=== PATIENT | female | born 1990 | race Caucasian/White ===

== ENCOUNTER 2019-11-22 06:35 | Inpatient (IN) | payer SELFPAY ==
[2019-11-22 06:37] VITALS: BP 167/101; PULSE 90; RESP 20; O2SAT 100; BMI 26.6
[2019-11-22 07:08] LABS: Basophils % 0.2 %; Eosinophils % 0.1 %; Hematocrit 40.9 % (37.0-47.0); Lymphocytes # 1.2 10^3/uL (0.8-4.8); Mean Corpuscular HGB Conc 31.8 g/dL (30.0-36.0); Mean Corpuscular Hemoglobin 27.1 pg (28.0-34.0); Mean Corpuscular Volume 85.2 fL (81-99); Mean Platelet Volume 10.7 fL (7.4-10.4); Monocytes # 0.4 10^3/uL (0.2-0.9); Neutrophils # 7.75 10^3/uL (1.8-7.7); Neutrophils % 82.3 %; Nucleated Red Blood Cells % 0 %; Platelet Count 290 10^3/cmm (130-400); Red Cell Distribution Width 12.4 % (12.1-15.1); White Blood Count 9.4 10^3/uL (4.0-10.0)
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
[2019-11-22 07:28] LABS: Alanine Aminotransferase 11 U/L (0-33); Alkaline Phosphatase 146 IU/L (35-105); Aspartate Amino Transferase 20 U/L (0-32); Blood Urea Nitrogen 11 mg/dL (6-20); Calcium 8.2 mg/dL (8.5-10.5); Carbon Dioxide 19 mmol/L (22-29); Chloride 106 mmol/L (98-107); Creatinine Clr Calc Pharmacy 120.5008; Globulin 3.8 g/dL (1.3-4.6); Glomerular Filtration Rate 100.4 mL/min (90-130); Glucose 94 mg/dL (65-115); Osmolality Calculated 288 mOsm/kg (285-295); Sodium 141 mmol/L (136-145); Total Bilirubin 0.3 mg/dL (0.15-1.2); Total Protein 7.8 g/dL (6.6-8.7)
[2019-11-22 07:30] LABS: Acetaminophen < 5.0 ug/mL (10-30); Alcohol Level < 10 mg/dL (0-10); Salicylate < 0.3 mg/dL (3-10)
[2019-11-22 08:29] LABS: Add Urine Microscopic? YES; Amphetamines Screen Urine Positive (Negative); Barbiturates Screen Urine Negative (Negative); Benzodiazepines Screen Urine Positive (Negative); Bilirubin Urine Neg (NEGATIVE); Blood Urine 3+ (Negative); Cocaine Screen Urine Positive (Negative); Glucose Urine UA Norm (Normal); Ketones Urine 2+ (Negative); Leukocyte Esterase Urine 2+ (Negative); Nitrate Urine Negative (Negative); PCP Screen Urine Negative (Negative); Protein Urine 1+ (Negative); Specific Gravity, Urine 1.005 (1.005-1.030); THC Screen Urine Negative (Negative); Urine Appearance SL Hazy (CLEAR); Urine Color Straw (Yellow); Urobilinogen Urine Norm (Negative)
[2019-11-22 08:30] LABS: Add Urine Culture? Yes; Bacteria Urine 1+; Mucus Urine 1+; Opiate Screen Urine Positive (Negative); Squamous Epithelial Cell Urine 0-4 (0-5)
[2019-11-22 08:40] VITALS: BP 162/96; PULSE 84; RESP 18; TEMP 36.7; O2SAT 96
[2019-11-22] MEDS: LORazepam 2 mg/mL INJ 1 mL ×2 (09:46→09:47)
--- NOTE | 2019-11-22 09:48 | PC.NURSE ---
1 mg given and 1mg wasted
[2019-11-22] MEDS: LORazepam 2 mg/mL INJ 1 mL IM (10:47)
[2019-11-22] MEDS: ziprasidone 20 mg/mL SDV 10 MG IM (10:49)
[2019-11-22 11:13] VITALS: BP 134/98; PULSE 101; RESP 20; TEMP 37.1; O2SAT 99
[2019-11-22 11:50] VITALS: BP 124/84; PULSE 100; RESP 20; TEMP 36.7; O2SAT 97
[2019-11-22 14:00] VITALS: BP 124/84; PULSE 100; RESP 20; TEMP 36.7; O2SAT 97
[2019-11-22] MEDS: OLANZapine 5 mg ODT PO (19:57)
[2019-11-22] MEDS: hyDROXYzine 25 mg Capsule 50 MG PO (19:57)
[2019-11-22 20:44] VITALS: BP 116/78; PULSE 112; RESP 19; TEMP 36.7; O2SAT 99
[2019-11-23 06:00] VITALS: BP 134/82; PULSE 67; RESP 18; TEMP 36.9; O2SAT 98
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
[2019-11-23] MEDS: OLANZapine 5 mg ODT PO ×2 (12:30→21:02)
[2019-11-23] MEDS: acetaminophen 325 mg Tablet 650 MG PO (12:34)
--- NOTE | 2019-11-23 12:35 | PC.NURSE ---
Given :PRN Zyprexa Zydis MG PO PRN Tylenol MG PO for arm pain at a 7 out of 0-10 pain scale Patient reports pain in her arms and will continue to monitor progress.
[2019-11-23 14:00] VITALS: BP 117/80; PULSE 97; RESP 20; TEMP 36.8; O2SAT 96
[2019-11-23] MEDS: ARIPiprazole 10 mg Tablet PO ×2 (17:22→17:45)
[2019-11-23 20:54] VITALS: BP 119/72; PULSE 76; RESP 20; TEMP 37.1; O2SAT 98
[2019-11-23] MEDS: hyDROXYzine 25 mg Capsule 50 MG PO (21:02)
[2019-11-23] MEDS: quetiapine 100 mg Tablet PO (21:02)
[2019-11-24 06:00] VITALS: BP 124/84; PULSE 85; RESP 18; TEMP 36.9; O2SAT 98
[2019-11-24] MEDS: ARIPiprazole 10 mg Tablet PO (08:07)
[2019-11-24 14:00] VITALS: BP 130/84; PULSE 67; RESP 18; TEMP 37.1; O2SAT 98
--- NOTE | 2019-11-24 15:51 | P.PN_ITS ---
Subjective NPU Subjective: Interval history: Joanne presented to the interview a little more with it but not much. She continues to be confused and psychomotor retarded. She has been trying to get ahold of family and is wanting to know if she could be discharged. We discussed the fact that we will discharge her but not likely until we have some clearing of her psychosis, which she did not fight us about. We discussed the fact that CPS was interested in having a conversation with her, which she was open to doing. Additionally, she was reporting that she was having some anxiety. We agreed that we would look into some treatment, but directed her to the prn medications that are available for her. We also advised her that Propranolol had been initiated, as we had discussed later in the day yesterday, and that she had that available to her three times a day, which is a non-addictive medication for her anxiety; she understood and agreed to proceed as is documented in this note, after a discussion of the risks, benefits, and alternatives. She is sleeping much better and eating okay. Mental Status Exam MSE Comments: This is a well-nourished, well-developed, female, with adequate dress, slightly disheveled, and limited eye contact. No abnormal movements except for psychomotor retardation. Mostly cooperative with exam in mild distress. Speech was normal rate and volume. Mood described as anxious; affect slightly irritable. Thought process, disorganized but intermittently linear/organized. Thought content: patient denied any suicidal or homicidal ideation. She endorsed paranoia and there were clear paranoid delusions noted. She endorsed having some auditory and visual hallucinations. Attention and concentration were limited, and memory was unreliable, but none were formally tested. She is alert and oriented to person and place. Insight and judgment are impaired. Impulse control is impaired. Vitals/I&O/Wt Last Vital Signs Temp 98.4 F 11/24/19 06:00 Pulse 85 11/24/19 06:00 Resp 18 11/24/19 06:00 BP 124/84 11/24/19 06:00 Pulse Ox 98 11/24/19 06:00 Data NPU : 11/22/19 07:00 11/22/19 07:00 A&P Additional A&P Information (1) Acute psychosis: (2) Drug overdose: (3) Substance abuse: This is a 28 year old, female, eleven days or so post- with clear psychosis, active addiction, and issues with child protective services, who presents not on medication, wanting to restart medications. Continue current medication. Except added Klonopin 0.5 mg by mouth twice a day when necessary. Along with the propranolol 20 mg by mouth 3 times a day when necessary. Encourage individual, group, and milieu therapy. Continue q-15 minute checks for safety. Recommend sober living treatment at the highest level of care, to which the patient is willing to commit. Involuntary Hold Information 96 Hour Hold: 96 Hour Involuntary Admission: Yes 96 Hour Hold Ending Date: 11/28/19 96 Hour Hold Ending Time: 09:45 Attestations NPU Medical Necessity Statement*: Inpatient hospitalization is medically necessary and the clinically appropriate intervention, at this time. We will monitor medications and make changes as indicated. Likely length of stay is 3-5 days. Coding Level of Care Code Acute Wire Spiral Binder for Umair Hayes
[2019-11-24] MEDS: OLANZapine 5 mg ODT PO (16:49)
--- NOTE | 2019-11-24 16:49 | PC.NURSE ---
PRN ZYPREXA ZYDIS ZYPREXA ZYDIS 5MG PO PER PATIENT C/O AGITATION/ANXIETY. WILL CONTINUE TO MONITOR FOR MEDICATION EFFECTIVENESS.
[2019-11-24] MEDS: CLONazepam 0.5 mg Tablet PO (17:48)
--- NOTE | 2019-11-24 17:50 | PC.NURSE ---
PRN ZYPREXA ZYDIS FOLLOW UP MEDICATION EFFECTIVE. NO FURTHER C/O ANXIETY.
--- NOTE | 2019-11-24 18:20 | PC.NURSE ---
Childrens Division At 1845 the patient was served papers for custody of her child by a children's division senior investigator. Security was present. Dr Saab was aware. Patient tolerated well.
[2019-11-24] MEDS: quetiapine 100 mg Tablet PO (21:37)
[2019-11-24 22:00] VITALS: BP 120/80; PULSE 56; RESP 18; TEMP 36.5; O2SAT 98
[2019-11-25 06:00] VITALS: BP 129/85; PULSE 55; RESP 16; TEMP 36.6; O2SAT 98
[2019-11-25] MEDS: ARIPiprazole 10 mg Tablet PO (09:53)
[2019-11-25] MEDS: CLONazepam 0.5 mg Tablet PO (09:55)
[2019-11-25 13:42] VITALS: BP 147/87; PULSE 65; RESP 18; TEMP 36.7; O2SAT 97
[2019-11-25] MEDS: hyDROXYzine 25 mg Capsule 50 MG PO (14:17)
--- NOTE | 2019-11-25 14:34 | P.PN_ITS ---
Subjective NPU Subjective: Interval history: Joanne presented today struggling a little bit because she was visited by Child Protective Services, and they advised her that they had taken custody of the baby that she just delivered. The baby is in foster care now; she had been staying with Joanne?s mother, however, they made the decision and moved upon that. She now has a change in her focus, as she has a hearing next week, and her goal now is just to be well and be able to represent herself well at the hearing. We discussed that as a reasonable plan. She had requested that we check her records, and we did get some records back from [facility], saying that they had not treated her or given her any medication for at least a year. We do see where Klonopin has been used, in the past, for anxi ety; this process description writer expressed that given her current presentation, a discharge on a controlled substance is just not a good plan. However, as a prn occasionally, we agreed that we could have Klonopin be in place, as the Lorazepam, as it seems to work better for her. We reviewed the possibility of increasing her Abilify, in the morning, as she is adjusting to it and having some improvement in her psyc hosis. She does report that her thoughts are kind of racing, at this point, and we agreed that given the initiation of Abilify, increasing that medication to try to meet that concern would be the most appropriate intervention. We discussed the risks, benefits, and alternatives of doing that, and she understood and agreed to proceed as is documented in this note. She reports that she is eating okay and sleeping a little better. Mental Status Exam MSE Comments: This is a well-nourished, well-developed, female, with adequate dress, grooming, and improving eye contact. No abnormal movements except for psychomotor retardation. Mostly cooperative with exam in mild distress. Speech was normal rate and volume. Mood described as anxious; affect less irritable. Thought process, less disorganized. Thought content: patient denied any suicidal or homicidal ideation. She endorsed paranoia and there were clear paranoid delusions noted. She endorsed having some auditory and visual hallucinations and racing thoughts. Attention and concentration were improving, and memory was unreliable, but none were formally tested. She is alert and oriented to person and place. Insight and judgment are impaired, but improving. Impulse control is impaired. Vitals/I&O/Wt Last Vital Signs Temp 97.8 F 11/25/19 06:00 Pulse 55 L 11/25/19 06:00 Resp 16 11/25/19 06:00 BP 129/85 11/25/19 06:00 Pulse Ox 98 11/25/19 06:00 Data NPU : 11/22/19 07:00 11/22/19 07:00 A&P Additional A&P Information (1) Acute psychosis: (2) Drug overdose: (3) Substance abuse: This is a 28 year old, female, eleven days or so post- with clear psychosis, active addiction, and issues with child protective services, who presents not on medication, wanting to restart medications. Continue current medication. Encourage individual, group, and milieu therapy. Continue q-15 minute checks for safety. Recommend sober living treatment at the highest level of care, to which the patient is willing to commit. Involuntary Hold Information 96 Hour Hold: 96 Hour Involuntary Admission: Yes 96 Hour Hold Ending Date: 11/28/19 96 Hour Hold Ending Time: 09:45 Attestations NPU Medical Necessity Statement*: Inpatient hospitalization is medically necessary and the clinically appropriate intervention, at this time. We will monitor medications and make changes as indicated. Likely length of stay is 2-4 days. Coding Level of Care Code Acute Technologist Development for Umair Hayes
[2019-11-25] MEDS: OLANZapine 5 mg ODT PO (16:52)
[2019-11-25] MEDS: acetaminophen 325 mg Tablet 650 MG PO (16:54)
[2019-11-25] MEDS: propranolol 20 mg Tablet PO (21:24)
[2019-11-25] MEDS: quetiapine 100 mg Tablet PO (21:24)
--- NOTE | 2019-11-25 21:26 | PC.NURSE ---
PRN INDERAL PT REQUESTING ANXIETY MEDICATION. ADMINISTERED INDERAL 20MG PO. WILL MONITOR FOR MEDICATION EFFECTIVENESS.
[2019-11-25 22:00] VITALS: BP 131/89; PULSE 50; RESP 17; TEMP 36.5; O2SAT 99
[2019-11-26 06:00] VITALS: BP 136/90; PULSE 58; RESP 15; TEMP 36.5; O2SAT 97
[2019-11-26] MEDS: ARIPiprazole 10 mg Tablet PO (09:02)
[2019-11-26] MEDS: CLONazepam 0.5 mg Tablet PO ×2 (09:04→20:37)
--- NOTE | 2019-11-26 09:04 | PC.NURSE ---
PRN KLONOPIN KLONOPIN 0.5MG PO PER PATIENT C/O ANXIETY. WILL CONTINUE TO MONITOR FOR MEDICATION EFFECTIVENESS.
--- NOTE | 2019-11-26 10:00 | PC.NURSE ---
PRN KLONOPIN FOLLOW UP MEDICATION EFFECTIVE. NO FURTHER C/O ANXIETY.
[2019-11-26] MEDS: nicotine 2 mg Gum BUCCAL (10:31)
[2019-11-26] MEDS: OLANZapine 5 mg ODT PO (13:48)
--- NOTE | 2019-11-26 13:49 | PC.NURSE ---
PRN ZYPREXA ZYDIS ZYPREXA ZYDIS 5MG PO PER PATIENT C/O AGITATION/ANXIETY. WILL CONTINUE TO MONITOR FOR MEDICATION EFFECTIVENESS.
--- NOTE | 2019-11-26 13:52 | PM.NPN ---
Subjective NPU Subjective: Interval history: Joanne presents today somewhat irritable and focused on discharge. She is identifying that she has a hearing on Wednesday and wanting to make sure that she can get there. It is at 9:45 in the morning. She endorsed that she would like to attend in person though it appears that she could attend virtually. We discussed the likelihood that she would be discharged, but we would have to make sure that she has improved enough and would be appropriate for discharge. It is in [place], [place] reportedly. She is very focused on medication as a solution for all that ails her. During the day she requested a medication for ADHD, a medication for anxiety, a medication for what she describes as a pinched nerve from the recent childbirth, and an increase in her Klonopin for anxiety. We had a long discussion about the fact that once she is discharged there are not going to be a lot of providers that are interested in having her on medications that are all either controlled substances or have street value. She reported a plan to go back to [facility] and reporting that they had her on Suboxone, Adderall, Klonopin, and Neurontin. We discussed that given her addiction history, that is not a great idea even though she endorses that she did not take anything other than how it was prescribed. I explained to her that we would not be increasing the Klonopin, that I am not even that excited about the idea of discharging her on it. We discussed the risks, benefits, and alternatives of Strattera. Unfortunately, it is not on formulary so we agreed to Wellbutrin to see if it might help with her ADHD symptoms. She understood and agreed to proceed as is documented in this note. Mental Status Exam MSE Comments: This is a well-nourished, well-developed, female, with adequate dress, grooming, and improving eye contact. No abnormal movements except for psychomotor retardation. Mostly cooperative with exam in mild distress. Speech was normal rate and volume. Mood described as anxious; affect less irritable. Thought process, more organized. Thought content: patient denied any suicidal or homicidal ideation. She endorsed less paranoia and there were paranoid and some bizarre delusions noted, but lessening. She denied auditory or visual hallucinations. Attention and concentration were improving, and memory was more reliable, but none were formally tested. She is alert and oriented x 3. Insight and judgment are improving. Impulse control is impaired, but improving. Vitals/I&O/Wt Last Vital Signs Temp 97.7 F 11/26/19 06:00 Pulse 58 L 11/26/19 06:00 Resp 15 11/26/19 06:00 BP 136/90 11/26/19 06:00 Pulse Ox 97 11/26/19 06:00 Weight last 48 hrs Weight 63.163 kg Data NPU : 11/22/19 07:00 11/22/19 07:00 A&P Assessment and plan (1) History of ADHD: Status: Acute (2) Schizophrenia: Status: Acute Additional A&P Information (3) Acute psychosis: (4) Drug overdose: (5) Substance abuse: This is a 28 year old, female, eleven days or so post- with clear psychosis, active addiction, and issues with child protective services, who presents not on medication, wanting to restart medications. Continue current medication. Encourage individual, group, and milieu therapy. Continue q-15 minute checks for safety. Recommend sober living treatment at the highest level of care, to which the patient is willing to commit. Involuntary Hold Information 96 Hour Hold: 96 Hour Involuntary Admission: Yes 96 Hour Hold Ending Date: 11/28/19 96 Hour Hold Ending Time: 09:45 Attestations NPU Medical Necessity Statement*: Inpatient hospitalization is medically necessary and the clinically appropriate intervention, at this time. We will monitor medications and make changes as indicated. Likely length of stay is 1-3 days. Coding Level of Care Code Acute Multi Operation Forming Machine Setter for Umair Hayes Diagnoses History of ADHD Z86.59 Schizophrenia F20.9
[2019-11-26 14:00] VITALS: BP 146/91; PULSE 59; RESP 18; TEMP 36.6; O2SAT 98
--- NOTE | 2019-11-26 14:35 | PC.NURSE ---
PRN ZYPREXA ZYDIS FOLLOW UP MEDICATION EFFECTIVE. NO FURTHER C/O ANXIETY.
[2019-11-26] MEDS: blistex lip oint 7 gm Tube 1 APPLIC TOPICAL (15:42)
[2019-11-26] MEDS: buPROPion SR (12 HR) 150 mg Tablet PO (16:23)
[2019-11-26 20:14] VITALS: BP 134/84; PULSE 64; RESP 16; TEMP 36.7; O2SAT 93
[2019-11-26] MEDS: quetiapine 100 mg Tablet PO (20:37)
--- NOTE | 2019-11-26 20:37 | PC.NURSE ---
pt given scheduled seroquel and PRN klonopin per pt request.
[2019-11-27 06:00] VITALS: BP 136/90; PULSE 53; RESP 13; TEMP 36.8; O2SAT 98
[2019-11-27] MEDS: ARIPiprazole 30 mg Tablet 15 MG PO (08:55)
[2019-11-27] MEDS: buPROPion XL (24 HR) 150 mg Tablet PO (08:55)
[2019-11-27] MEDS: CLONazepam 0.5 mg Tablet PO ×2 (08:58→20:20)
--- NOTE | 2019-11-27 08:58 | PC.NURSE ---
PRN KLONOPIN KLONOPIN 0.5MG PO PER PATIENT C/O ANXIETY. WILL CONTINUE TO MONITOR FOR MEDICATION EFFECTIVENESS.
--- NOTE | 2019-11-27 10:00 | PC.NURSE ---
PRN BOSTONONOPIN FOLLOW UP MEDICATION EFFECTIVE. NO FURTHER C/O ANXIETY. PATIENT SITTING IN THE DAYROOM.
--- NOTE | 2019-11-27 13:01 | PC.NURSE ---
PRN ZYPREXA ZYDIS ZYPREXA ZYDIS 5MG PO PER PATIENT C/O ANXIETY/AGITATION. WILL CONTINUE TO MONITOR FOR MEDICATION EFFECTIVENESS.
[2019-11-27] MEDS: OLANZapine 5 mg ODT PO (13:03)
[2019-11-27 14:00] VITALS: BP 147/95; PULSE 49; RESP 18; TEMP 37.1; O2SAT 96
--- NOTE | 2019-11-27 14:00 | PC.NURSE ---
PRN ZYPREXA ZYDIS FOLLOW UP MEDICATION NOT EFFECTIVE. PATIENT CAME UP TO THE NURSES STATION ASKING FOR SOMETHING FOR ANXIETY. PATIENT STATED THAT SHE JUST GOT NEWS THAT HER DAD ONLY HAD 3 MONTHS TO LIVE. SEE NEXT NOTE.
[2019-11-27] MEDS: propranolol 20 mg Tablet PO (14:17)
--- NOTE | 2019-11-27 14:17 | PC.NURSE ---
Addendum entered by Cassy Grimaldo LPN 11/27/19 15:05: MEDICATION EFFECTIVE. NO FURTHER C/O ANXIETY. Original Note: PRN INDERAL INDERAL 20MG PO PER PATIENT C/O ANXIETY. WILL CONTINUE TO MONITOR FOR MEDICATION EFFECTIVENESS.
--- NOTE | 2019-11-27 16:28 | PM.NPN ---
Subjective NPU Subjective: Interval history: Joanne presented today reporting that she is looking forward to discharge tomorrow. We discussed the process by which she can get discharged in the morning and still make her hearing. We decided to do this mostly because there are still concerns about her level of functioning but not to the level that we would continue the hold which ends at 945 tomorrow. We discussed this at length she was open to this plan of her mother coming tomorrow morning and if she is on time they can leave and have the virtual court session at their place. If not they can work with the social media content manager here to find a spot where the phone call can take place. She continues to be focused on restarting the medications she had been on before but we continue to identify our reluctance to prescribe those medications given her addiction being active. Mental Status Exam MSE Comments: This is a well-nourished, well-developed, female, with adequate dress, grooming, and improving eye contact. No abnormal movements except for mild but resolving psychomotor retardation. Mostly cooperative with exam in less distress. Speech was normal rate and volume. Mood described as better; affect less irritable. Thought process, more organized. Thought content: patient denied any suicidal or homicidal ideation. She endorsed less paranoia , and her paranoid delusions noted are decreasing. She denied auditory or visual hallucinations. Attention and concentration were improving, and memory was more reliable, but none were formally tested. She is alert and oriented x 3. Insight and judgment are improving. Impulse control is impaired, but improving. Vitals/I&O/Wt Last Vital Signs Temp 98.7 F 11/27/19 14:00 Pulse 49 L 11/27/19 14:00 Resp 18 11/27/19 14:00 BP 147/95 11/27/19 14:00 Pulse Ox 96 11/27/19 14:00 Weight last 48 hrs Weight 63.163 kg Data NPU : 11/22/19 07:00 11/22/19 07:00 A&P Assessment and plan (1) History of ADHD: Status: Acute (2) Schizophrenia: Status: Acute Additional A&P Information This is a 28 year old, female, 2 weeks or so post- with resolving psychosis, active addiction, and issues with child protective services, who presents adjusting to the medications. Continue current medication. Encourage individual, group, and milieu therapy. Continue q-15 minute checks for safety. Recommend sober living treatment at the highest level of care, to which the patient is willing to commit. Involuntary Hold Information 96 Hour Hold: 96 Hour Involuntary Admission: Yes 96 Hour Hold Ending Date: 11/28/19 96 Hour Hold Ending Time: 09:45 Attestations NPU Medical Necessity Statement*: Inpatient hospitalization is medically necessary and the clinically appropriate intervention, at this time. We will monitor medications and make changes as indicated. Likely length of stay is 1-2 days. Coding Level of Care Code Acute Beverage Server for Umair Hayes Diagnoses History of ADHD Z86.59 Schizophrenia F20.9
[2019-11-27] MEDS: nicotine 2 mg Gum BUCCAL (17:14)
[2019-11-27] MEDS: quetiapine 100 mg Tablet PO (20:20)
--- NOTE | 2019-11-27 20:37 | PC.NURSE ---
pt given scheduled seroquel and prn klonopin per pt request.
[2019-11-27 20:56] VITALS: BP 136/76; PULSE 58; RESP 20; TEMP 36.7; O2SAT 95
[2019-11-28 06:00] VITALS: BP 119/79; PULSE 57; RESP 16; TEMP 36.6; O2SAT 99
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
[2019-11-28] MEDS: ARIPiprazole 30 mg Tablet 15 MG PO (08:22)
[2019-11-28] MEDS: buPROPion XL (24 HR) 150 mg Tablet PO (08:22)
[2019-11-28] MEDS: hyDROXYzine 25 mg Capsule 50 MG PO (08:30)
--- NOTE | 2019-11-28 08:30 | PC.NURSE ---
PRN VISTARIL 50 MG GIVEN PO PER PT C/O STATED ANXIETY. NO OUTWARD S/S OF ANXIETY NOTED. MOOD IS PLEASANT
[2019-11-28 08:32] VITALS: BP 119/79; PULSE 57; RESP 16; TEMP 36.6; O2SAT 99
== END 2019-11-28 09:53 | disposition home or self-care (01) | DRG 885 ==
LOC: ER 07:44 → NP 10:16
PROVIDERS: Family Medicine; Admitting Provider Psychiatry & Neurology Psychiatry; Visit Provider Psychiatry & Neurology Psychiatry
DX: F23 Brief psychotic disorder (principal); F17.210 Nicotine dependence, cigarettes, uncomplicated; Z86.59 Personal history of other mental and behavioral disorders; F20.9 Schizophrenia, unspecified
CPT/HCPCS: 12345; 36415; 80053; 80306; 80307; 81001; 85025; 87086; 99282; J2060; J3486

== ENCOUNTER 2020-02-19 11:25 | Emergency (ER) | payer MEDICAID, SELFPAY ==
[2020-02-19 11:28] VITALS: RESP 15
--- NOTE | 2020-02-19 11:32 | ED_ITS ---
HPI - Overdose General: Stated Complaint: HEROIN OVERDOSE Time Seen by Provider: 02/19/20 11:29 History of Present Illness: HPI Narrative: 29-year-old female presents emergency room via EMS. She was found unresponsive by her mother who she lives with. She admits to having done heroin this morning she thinks she may have just injected to monitor injected too fast she denies trying to harm herself denies any other injury or illness she does not wish to stay and asked to be allowed to leave. Review of Systems Const: Denies: fever(s), chills, body aches, change in appetite, fatigue or malaise Card: Denies: chest pain, edema, dyspnea on exertion or orthopnea Resp: Denies: dyspnea, productive cough or non-productive cough GI: Denies: abdominal pain, nausea, vomiting, hematemesis, coffee ground emesis, diarrhea, constipation, bloating, hematochezia or melena : Denies: flank pain, difficulty voiding, dysuria, urinary frequency or urinary urgency PFSH ED PFSH: Social History (Updated 02/19/20 @ 11:34 by Osmani Balderas DO) Substance/Drug Use: current Substance/Drug use frequency: daily Substance/Drug use type: Heroin Desire information about substance/drug rehabilitation?: No Last substance use date: 02/19/20 Last substance use time: 11:00 Current gender identity: Female Physical Exam Const: COMMON NORMALS: no acute distress GENERAL APPEARANCE: cooperative and comfortable ORIENTATION/CONSCIOUSNESS: Yes awake, Yes oriented to person, Yes oriented to place and Yes oriented to time HENMT: COMMON NORMALS: normocephalic, atraumatic and hearing grossly normal bilaterally HEAD & SCALP: normocephalic and atraumatic Eye: COMMON NORMALS: Equal, round and reactive pupils present, EOMs intact bilaterally, conjunctivae normal and no scleral icterus CONJUNCTIVA: Yes conjunctivae normal PUPIL: Yes Equal, round and reactive pupils present Neck/C-Spine: COMMON NORMALS: full ROM, no lymphadenopathy, supple and no JVD Resp: COMMON NORMALS: normal respiratory effort, No retractions, No use of accessory muscles and clear to auscultation bilaterally AUSCULTATION: clear to auscultation bilaterally Cardio: COMMON NORMALS: no JVD, regular rate, regular rhythm and No murmurs present (Cardio) RATE: regular rate RHYTHM: regular rhythm GI: COMMON NORMALS: Soft to palpation and No hepatosplenomegaly present AUSCULTATION: Yes normoactive bowel sounds PALPATION: Yes Soft to palpation, No Tenderness to palpation present (GI), No Guarding due to palpation present (GI) and Yes No hepatosplenomegaly present Extremity: COMMON NORMALS: normal to inspection, capillary refill normal, no clubbing, cyanosis or edema, no calf tenderness and no pedal edema Neuro: SENSORIUM/ORIENTATION: Yes oriented to person, Yes oriented to place and Yes oriented to time Skin: COMMON NORMALS: no rashes or lesions noted GENERAL SKIN EXAM: no rashes or lesions noted MDM - Overdose MDM Narrative: Medical decision making narrative: Patient denies suicidal ideation she expresses understanding that we have not been able to thoroughly evaluate her other than a physical exam. I would recommend further evaluation she refuses. Besides her obvious incredibly poor lifestyle choices there is no apparent mental inhibitions no reason that she cannot clearly understand or warnings. She did express to her that we could not be certain what it caused her to pass out without further evaluation we cannot be sure how it might affect her health that may cause worsening problems or even up to and including she expresses understanding this and still wishes to go home. Discharge Plan Discharge Patient Disposition: Left Against Medical Advice Clinical Impression: Substance abuse, Drug overdose Condition: Stable Prescriptions: No Action Unable to Assess RF: 0 clonazepam 0.5 mg Tablet 0.5 mg PO BID PRN (Reason: Anxiety) 30 Days Qty: 60 RF: 1 quetiapine 100 mg Tablet 100 mg PO BEDTIME 30 Days Qty: 30 RF: 1 propranolol 20 mg Tablet 20 mg PO TID PRN (Reason: Anxiety) 30 Days Qty: 90 RF: 1 aripiprazole 30 mg Tablet 15 mg PO DAILY 30 Days Qty: 30 RF: 1 bupropion HCl 150 mg Tablet Extended Release 24 Hr 150 mg PO DAILY 30 Days Qty: 30 RF: 1 Coding Level of Care Code ED [employer] for Umair Hayes
== END 2020-02-19 11:49 | disposition left against medical advice (07) ==
PROVIDERS: Emergency Provider Family Medicine
DX: F11.129 Opioid abuse with intoxication, unspecified (principal); T40.1X1A Poisoning by heroin, accidental (unintentional), initial encounter; Z53.29 Procedure and treatment not carried out because of patient's decision for other reasons
CPT/HCPCS: 12345; 99281

== ENCOUNTER → 2020-03-15 08:21 | Outpatient (BNVA) | payer OTHER, SELFPAY | PROVIDERS: Visit Provider Nurse Practitioner Psychiatric/Mental Health | DX: Z03.89 Encounter for observation for other suspected diseases and conditions ruled out (principal) | CPT/HCPCS: 80053; 80307 ==

== ENCOUNTER → 2022-01-15 14:15 | Outpatient (BNVA) | payer MEDICAID, SELFPAY | PROVIDERS: Visit Provider Nurse Practitioner | DX: F20.9 Schizophrenia, unspecified (principal); R56.9 Unspecified convulsions; F41.8 Other specified anxiety disorders; Z30.011 Encounter for initial prescription of contraceptive pills | CPT/HCPCS: 80053; 82607; 83550; 84443; 85025 ==

== ENCOUNTER → 2022-03-02 13:53 | Outpatient (BNVA) | payer MEDICAID, SELFPAY | PROVIDERS: PCP Nurse Practitioner; Visit Provider Nurse Practitioner | DX: F20.9 Schizophrenia, unspecified (principal); F41.8 Other specified anxiety disorders; R56.9 Unspecified convulsions; E61.1 Iron deficiency; D64.9 Anemia, unspecified; F11.11 Opioid abuse, in remission | CPT/HCPCS: 82607; 83550 ==